=== PATIENT | male | born 1985 | race Caucasian/White ===

== ENCOUNTER → 2017-03-24 | Outpatient (CLI) | payer BC ==
[2017-03-24 16:23] LABS: DAYS OF ABSTINENCE 5; METHOD OF COLLECTION MASTURBATION; SEMEN COLOR YELLOW-GRAY (GRY/GRYWHTE); SEMEN TIME OF COLLECTION 1516; SEMEN VOLUME 5.4 ML (>1.5); TYPE OF SPECIMEN CONTAINER STERILE CUP
[2017-03-24 16:24] LABS: SPERM VIABILITY STAIN NOT INDICATED % (>58%)
== END | disposition home or self-care (01) ==
LOC: C.LAB 16:00
PROVIDERS: ATTEND Family Medicine
DX: Z31.41 Encounter for fertility testing (principal); Z98.890 Other specified postprocedural states